=== PATIENT | male | born 1980 | race African-American/Black ===

== ENCOUNTER 2018-03-15 04:40 | Emergency (ER) | payer OTHER ==
[~2018-03-15] VITALS: Ht 175.3 cm; Wt 77.1 kg
[2018-03-15] MEDS ORDERED: MUPI22OI2 TP (05:07)
[2018-03-15] MEDS ORDERED: DOXY100C2 PO (05:07)
--- NOTE | 2018-03-15 05:07 | PHYS DOC ---
Past History Past Medical History: No Pertinent History Past Surgical History: No Surgical History Alcohol Use: None Drug Use: None Adult General Chief Complaint Chief Complaint: INSECT BITE HPI HPI Patient is a pleasant 38-year-old male who presents to the emergency department for evaluation. Over the past 3 days, he has had a pimple on his left leg, which has become slightly more tender and firm. He denies any definite known injury or known insect bites. He has not had any fevers or chills, nausea, vomiting. Palpation of the affected area seems to worsen some discomfort. There are no alleviating factors to his symptoms. Review of Systems Review of Systems Constitutional: Denies fever or chills [] GI: Denies abdominal pain, nausea, vomiting, Integument: Denies rash or skin lesions, except as noted in the history of present illness [] Neurologic: Denies headache Physical Exam Physical Exam PHYSICAL EXAM: HEENT: Atruamatic NECK: Supple, normal ROM, non-tender. CARDIAC: Regular Rate and Rhythm LUNGS: Clear Bilaterally EXTREMITIES: There is a small discrete area of erythema, with mild tenderness and firmness on the left lateral/posterior thigh. There is a very small pustule in the center. There is no definite fluctuance. The area firmness is approximately quarter dollar size, with the erythema extending around it for a total area approximately equivalent to a half dollar. There are no other lesions noted. Current Patient Data Vital Signs Vital Signs Date Time Temp Pulse Resp B/P (MAP) Pulse Ox O2 Delivery O2 Flow Rate FiO2 03/15/18 04:47 98.3 71 18 100 Room Air EKG EKG [] Radiology/Procedures Radiology/Procedures [] Course & Med Decision Making Course & Med Decision Making I discussed treatment options with the patient. He does appear to have a developing abscess but there is no fluctuance present at this time, making the utility of incision and drainage questionable. The patient preferred expectant management at this time with topical and oral antibiotics, expressing understanding that I&D may be required in the future. Return precautions were discussed in detail. Dragon Disclaimer Dragon Disclaimer This electronic medical record was generated, in whole or in part, using a voice recognition dictation system. Departure Departure: Impression: Primary Impression: Abscess Disposition: HOME, SELF-CARE Condition: STABLE Referrals: LESLIE GOLDMAN MD Patient Instructions: Abscess Additional Instructions: Applying warm compresses to the affected area may help improve healing. Return to medical care for any new, or worsening symptoms, if symptoms persist or if the area enlarges or becomes increasingly red or painful, you started developing fever, or any other new, or concerning symptoms. Your blood pressure is noted to be borderline elevated today. It is important that you obtain close follow-up to ensure that you do not have underlying hypertension that requires ongoing treatment. Please make an appointment to follow up with a primary care provider. Scripts Doxycycline Hyclate (DOXYCYCLINE HYCLATE) 100 Mg Capsule 1 CAP PO BID, #14 CAP Prov: EDIL STAHL MD 03/15/18 Mupirocin (MUPIROCIN) 22 Gm Oint...g. 1 RONALD TP TID, #22 GM Prov: EDIL STAHL MD 03/15/18 EDIL STAHL MD Mar 15, 2018 05:07
[2018-03-15 05:13] VITALS: BP 133/80
== END 2018-03-15 05:14 | disposition home or self-care (01) ==
LOC: ER 04:40
DX: L02.416 Cutaneous abscess of left lower limb (principal)
CPT/HCPCS: 99283